=== PATIENT | female | born 1995 | race African-American/Black ===

== ENCOUNTER 2021-12-05 02:30 | Day surgery (SDC) | payer BC, SELFPAY ==
--- NOTE | 2021-11-30 14:36 | PC.NURSE ---
Report to the Outpatient Waiting Room, entrance under the green pavilion located off [facility], at time 0600_ on date _12/05/21. ' OR Time: 0730_. - You and your visitor will be asked a series of questions to screen for COVID 19 for your protection. - A mask is required within the hospital. Preoperative COVID Testing Requirements: No COVID Test needed if: (proof is required; if not received patient will have Rapid Test prior to entry) - Patient has received COVID Vaccine at least 14 days prior to procedure date or - Patient has positive COVID test result within last 90 days of surgery date. COVID Test needed if above criteria is not met If not COVID vaccinated a COVID test must be conducted within 72 hours of surgery and patient is asked to isolate self from time of testing until procedure. You will go to the [facility] for your COVID testing. The [facility] site is located at the corner of [address] [facility]. You will only be called if COVID results are positive and your surgeon may reschedule your elective surgery date. Patients may have clear liquids (water, carbonated beverages, clear teas, apple juice) until 3 hours prior to surgery with a maximum of 20 ounces. STOP CLEAR LIQUIDS AT 0430 ON THE MORNING OF SURGERY - No food from midnight until time of surgery. - Infants may have breast milk until 4 hours before surgery, formula 6 hours prior to surgery. - Children will be allowed to drink immediately following surgery. If applicable, please bring a bottle or sippy cup to assist with drinking. Juice, water, soda, and popsicles are readily available. For infants on formula, please bring formula the day of surgery. Pacifiers are allowed. Take the following medications with a SIP of water the morning of surgery: __BIRTH CONTROL Medications to discontinue per physician NONE Date to take last dose N/A Please no make-up, nail slovak, hairspray, perfume, deodorant, or body powder the day of surgery. No jewelry (including any body piercings) or valuables the day of surgery, leave them at home. Please take a shower or bath the night before, or the morning of, surgery with an antibacterial soap. Wear comfortable, loose fitting clothing. Children are encouraged to wear pajamas. - Jewelry must be removed prior to entering the operating room. Rings and piercings that are not removed may be cut off. - The hospital will not accept responsibility for valuables. - Please leave all valuables, including medications, at home the day of surgery. If you are going home after surgery, a licensed powder truck driver must drive you home. - NO public transportation without another adult. - We recommend that an adult stay with you for 24 hours following discharge. - We also recommend that you do not drive, make important decision, drink alcoholic beverages, or take any drugs that were not prescribed by your health care provider for at least 24 hours after your discharge time. For Pediatric surgeries, we recommend two adults accompany the child home (only one inside the building at this time). One visitor will be allowed to accompany the patient into the hospital. Patients visitor will be instructed to remain with patient at all times or leave the building. We will allow the visitor to come back to the postoperative area when patient is ready. Follow any additional instructions given to you from your surgeon. Telephone instructions given to and asked if any additional questions and then verbalized understanding. Patient advised to call surgeon office or pre surgery nurse liaison [phone] if any additional questions.
[2021-12-05] VITALS (7 sets, daily range): BP systolic 100–130; BP diastolic 69–90; PULSE 55–88; RESP 16–20; TEMP 36.2; O2SAT 100
[2021-12-05] MEDS: ACETAMINOPHEN 500 MG TABLET 1000 MG PO (06:30)
--- NOTE | 2021-12-05 06:43 | WPDANESEPPF ---
Anes - Initial Pre Proc Eval Procedure: Operation Date: 12/05/21 07:30 Proposed Procedures p Hysteroscopy Dilation and Curettage with Myosure, Polypectomy - Carolina Jones MD Date/Time: 12/05/21 06:43 Surgeon: Carolina Jones MD Pre Op Diagnosis: Uterine Polyp Patient Data Age: 26 Gender: F Height: 1.57 m Weight: 80.4 kg Allergies Allergy/AdvReac Type Severity Reaction Status Date / Time aspirin Allergy Severe Anaphylactic Verified 12/05/21 06:07 Shock ibuprofen Allergy Severe Anaphylactic Verified 12/05/21 06:07 Shock Home Medications Medication Instructions Recorded Confirmed Type norethindrone 1.5 mg-ethinyl 1 tablet PO DAILY #84 tablet 11/10/21 12/05/21 Rx estradiol 30 mcg(21)/iron 75 mg(7) tablet Patient hx anesthesia problems: none Family hx anesthesia problems: none Results Review: All pre-operative results and documents have been reviewed as part of the pre-operative evaluation. 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 Gender identity (if verbalized by the patient): Female Sexual Orientation (if Verbalized by the Patient): Straight or Heterosexual Spiritual care concerns: No Anes - Eval Final PreProcedure Day of Procedure 12/05/21 06:43 Patient weight: obese Heart: regular rate and rhythm Lungs: clear to auscultation and normal air movement Airway: Mallampati scale class II Neurological: alert and oriented Last oral intake: >/= 8 hours ASA classification: II Emergent: no Anesthetic plan: proceed Anesthesia type and monitoring: general GIVS and standard monitoring Results Review: All pre-operative results and documents have been reviewed as part of the pre-operative evaluation. Informed Consent: The patient's anesthetic plan and its attendant risks and benefits were discussed with the patient/family/POA. Questions were solicited and answers provided to the satisfaction of the patient/family/POA.
[2021-12-05] MEDS: LACTATED RINGERS 1,000 ML 30 ML IV CONT (07:03)
--- NOTE | 2021-12-05 07:12 | PM.IMHP ---
H&P: HPI History of Present Illness Date/Time: 12/05/21 07:10 Loni is a 26yo G0 who presents for scheduled surgery. She presented as a new patient reporting that since last February (after her second covid shot) she has had irregular cycles. She bled from February until April (only stopped for 3 days). She had very heavy bleeding during this time with passage of large clots. She did see another OBGYN who ordered blood work and she was found to have a prolactin that was elevated; ~40ish. Her insurance would not approve a brain MRI. She continued have irregular cycles; skipping some for a few months, then bleeding for at least 2-4 weeks. She got new insurance and saw a PCP; where prolactin was still elevated. Brain MRI was negative for prolactinoma. She does not take any medications; no breast stimulation; no nipple discharge. She has been sexually active in the past; not for >1yr; multiple tests have been negative. She does, however, report significant hair growth on her chin/breasts. Pt does report being very stressed with multiple sick family members/deaths/school. PCOS workup was negative; prolactin remains in the 40's. US showed a small 3cm anterior fibroid but also an endometrial polyp measuring 0.8cm. 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 Gender identity (if verbalized by the patient): Female Sexual Orientation (if Verbalized by the Patient): Straight or Heterosexual Spiritual care concerns: No Meds Home Medications and Allergies Home Medications Medication Instructions Recorded Confirmed Type norethindrone 1.5 mg-ethinyl 1 tablet PO DAILY #84 tablet 11/10/21 12/05/21 Rx estradiol 30 mcg(21)/iron 75 mg(7) tablet Allergies Allergy/AdvReac Type Severity Reaction Status Date / Time aspirin Allergy Severe Anaphylactic Verified 12/05/21 06:07 Shock ibuprofen Allergy Severe Anaphylactic Verified 12/05/21 06:07 Shock Exam Const: General: cooperative, healthy appearing, comfortable and no acute distress Resp: Effort & Inspection: normal respiratory effort Cardio: Rate: regular rate GI: Inspection: normal to inspection and non-distended GI Palp: No abdominal tenderness and Yes Soft to palpation : Other: deferred to OR Neuro: General: patient oriented x3 Psych: Appearance: grossly normal Affect: normal affect Attitude: cooperative Assessment and Plan Assessment and plan (1) Abnormal uterine bleeding due to endometrial polyp: Code(s): N93.9 - Abnormal uterine and vaginal bleeding, unspecified; N84.0 - Polyp of corpus uteri Status: Acute Additional Plan - Proceed with hysteroscopy, polypectomy, D&C - Risks and benefits explained and all questions answered
--- NOTE | 2021-12-05 07:12 | WPDHPUPDATE1 ---
History and Physical Update Update Date/Time: 12/05/21 07:12 History and Physical has been reviewed, including an updated exam of the patient. There are NO changes in the patient's condition. Risks, benefits, and alternatives have been discussed and questions answered. Patient agrees to proceed with procedure.
--- NOTE | 2021-12-05 07:55 | W.PM.PROC2 ---
Procedure Note - Detailed Date of Procedure 12/05/21 Pre-op Diagnosis Uterine Polyp Post-op Diagnosis Same Procedure Performed Hysteroscopy, dilation and curettage, polypectomy Surgeon Carolina Jones MD Anesthesia MAC Indications Loni is a 26yo G0 who presented with AUB and heavy cycles. PCOS w/u was negative; she does have mildly elevated prolactin; brain MRI negative. She had US performed which showed an endometrial polyp. Findings Uterus sounded to 8cm. Cervix 1cm dilated with delivering polyp/clot. Normal endometrial cavity with bilateral tubal ostia visualized. Endocervical polyp also removed. Good hemostasis at end of case. Description of Procedure Loni was taken operating room where she was placed under sedation without complication. She was then prepped and draped in the usual sterile fashion in the dorsal lithotomy position with her legs in low Bernardino stirrups. A time-out was performed and no preoperative antibiotics were indicated. A bivalve speculum is placed within the vagina where the cervix was easily identified with the above findings noted. The polyp and clots were easily removed from the cervix using a ring forceps. The uterus was then sounded and the cervix was serially dilated to allow for the hysteroscope. The hysteroscope was advanced into the uterine cavity where we were unable to visualize anything, due to the patient being on her cycle. A gentle curettage was performed with a significant amount of polypoid tissue removed. The hysteroscope was then advanced into the uterus once again where a normal endometrial cavity was identified. The bilateral tubal ostia were visualized. While pulling the camera out, a endocervical polyp was noted. Using hysteroscopic alligator forceps the polyp was removed and the uterine and endocervical canals were noted to be within normal limits. All instruments were removed. Sponge, lap, instrument, and needle counts were correct at the end of the procedure. Patient was awoken from anesthesia and taken recovery with plans of same-day discharge home. Estimated Blood Loss 5 IV Fluids 500 Drains No Packing No Pathology Yes Complications No immediate complications Condition Stable Disposition Same day
[2021-12-05] MEDS: fentaNYL CITRATE INJ (*CRX) 100 MCG/2 ML VIAL 25 MCG IV PUSH (08:15)
[2021-12-05] MEDS: oxyCODONE HCL (*CRX) 5 MG TAB IR PO (08:37)
== END 2021-12-05 10:42 | disposition home or self-care (01) ==
PROVIDERS: PCP Nurse Practitioner Family; Visit Provider Obstetrics & Gynecology
PROC: 0U5B8ZZ Destruction of Endometrium, Via Natural or Artificial Opening Endoscopic (ICD-10-PCS; CPT 58563; principal; 2021-12-05 07:30)
DX: N93.9 Abnormal uterine and vaginal bleeding, unspecified (principal); N84.0 Polyp of corpus uteri; N84.1 Polyp of cervix uteri; E66.9 Obesity, unspecified; Z68.32 Body mass index [BMI] 32.0-32.9, adult
CPT/HCPCS: 58558; 88305; A9270; J2250; J2405; J2704; J3010; J7030; J7120